=== PATIENT | female | born 1955 | race African-American/Black ===

== ENCOUNTER 2017-11-04 09:20 | Day surgery (SDC) | payer MEDICAID ==
[~2017-11-04 09:20] MED LIST: Bupivacaine 0.25%/EPINEPHrine 1:200,000 10 ML SDV INJECT ONE; Bupivacaine 25%/EPINEPHrine/PF 30 ML ONE; Lactated Ringers 1,000 ML IV SCH; Midazolam 1 MG/ML 2 ML SDV ONE; Ondansetron 4 MG/2 ML SDV ONE; Propofol 200 MG/20 ML SDV ONE; ceFAZolin 1 GM Vial ONE; ceFAZolin 2 GM in Premix Bag 1 BAG IV ONE; fentaNYL 100 MCG/2 ML SDV ONE; traMADol 50 MG Tab PO PRN
--- NOTE | 2017-11-04 09:39 | PCM.PREANE ---
Preanesthetic Assessment - Anesthesia/Transfusion/Family Hx Anesthesia History: Prior Anesthesia Without Reaction Family History of Anesthesia Reaction: No Transfusion History: No Prior Transfusion(s) Intubation History: Unknown - Review of Systems General: No Symptoms Pulmonary: No Symptoms Cardiovascular: No Symptoms Gastrointestinal: No Symptoms Neurological: No Symptoms Other: Reports: None - Physical Assessment O2 Sat by Pulse Oximetry: 96 Respiratory Rate: 16 Vital Signs: Last Vital Signs Temp 36.5 C 11/04/17 09:32 Pulse 107 H 11/04/17 09:32 Resp 16 11/04/17 09:32 BP 193/73 H 11/04/17 09:32 Pulse Ox 96 11/04/17 09:32 Height: 1.63 m Weight: 102.965 kg ASA Class: 2 Mental Status: Alert & Oriented x3 Airway Class: Mallampati = 2 Dentition: Reports: Normal Dentition, Broken Tooth/Teeth (small chip front upper incisor) Thyro-Mental Finger Breadths: 3 Mouth Opening Finger Breadths: 3 ROM/Head Extension: Full Lungs: Clear to Auscultation, Normal Respiratory Effort Cardiovascular: Regular Rate, Regular Rhythm - Allergies Allergies/Adverse Reactions: Allergies Allergy/AdvReac Type Severity Reaction Status Date / Time No Known Allergies Allergy Verified 11/01/17 12:48 - Blood Blood Available: No - Anesthesia Plan Pre-Op Medication Ordered: None - Acknowledgements Anesthesia Type Planned: General Anesthesia Pt an Appropriate Candidate for the Planned Anesthesia: Yes Alternatives and Risks of Anesthesia Discussed w Pt/Guardian: Yes Pt/Guardian Understands and Agrees with Anesthesia Plan: Yes PreAnesthesia Questionnaire HEENT History: Reports: Epistaxis Cardiovascular History: Reports: Hypertension Gastrointestinal History: Reports: Other (See Below) Other Gastrointestinal History: occasional heartburn Genitourinary History: Reports: None Endocrine/Metabolic History: Reports: Obesity/BMI 30+ - Past Surgical History Head Surgeries/Procedures: Reports: None HEENT Surgical History: Reports: LASIK Female Surgical History: Reports: Tubal Ligation - SUBSTANCE USE Smoking Status *Q: Former Smoker Recreational Drug Use History: No - HOME MEDS Home Medications: Home Meds Diclofenac Sodium [Voltaren] 1 tab PO ASDIRECTED PRN 11/01/17 [History] Famotidine [Acid Dietary Server] 1 tab PO ASDIRECTED PRN 11/01/17 [History] Losartan/Hydrochlorothiazide [Losartan-HCTZ 100-25 MG] 1 tab PO DAILY 11/01/17 [ History] - CURRENT (IN HOUSE) MEDS Current Meds: Current Medications Lactated Ringer's (Ringers, Lactated) 1,000 mls @ 125 mls/hr IV ASDIRECTED KAILEE Last Admin: 11/04/17 09:36 Dose: 125 mls/hr Tramadol HCl (Ultram) 50 mg PO Q4H PRN PRN Reason: Pain Discontinued Medications Bupivacaine HCl/Epinephrine Bitart (Marcaine 0.25%/Epinephrine 1:200,000) 10 ml INJECT ONETIME ONE Stop: 11/04/17 08:01 Cefazolin Sodium (Ancef) Confirm Administered Dose 1 gm .ROUTE .STK-MED ONE Stop: 11/04/17 08:53 Fentanyl (Sublimaze) Confirm Administered Dose 100 mcg .ROUTE .STK-MED ONE Stop: 11/04/17 08:34 Cefazolin Sodium/Dextrose 2 gm (/ Premix) 50 mls @ 100 mls/hr IV ONETIME ONE Stop: 11/04/17 08:29 Bupivacaine HCl/Epinephrine Bitart (Sensorc Mpf 0.25%-Epi [id number]) Confirm Administered Dose 30 mls @ as directed .ROUTE .STK-MED ONE Stop: 11/04/17 07:32 Cefazolin Sodium/Dextrose (Ancef) Confirm Administered Dose 50 mls @ as directed .ROUTE .STK-MED ONE Stop: 11/04/17 08:53 Cefazolin Sodium/Dextrose (Ancef) Confirm Administered Dose 50 mls @ as directed .ROUTE .STK-MED ONE Stop: 11/04/17 08:53 Midazolam HCl (Versed 1 Mg/Ml) Confirm Administered Dose 2 mg .ROUTE .STK-MED ONE Stop: 11/04/17 08:34 Ondansetron HCl (Zofran) Confirm Administered Dose 4 mg .ROUTE .STK-MED ONE Stop: 11/04/17 08:35 Propofol (Diprivan 20 Ml) Confirm Administered Dose 200 mg .ROUTE .STK-MED ONE Stop: 11/04/17 08:34
[2017-11-04] MEDS ORDERED: Propofol 200 MG/20 ML SDV ONE ×2 (09:57→10:19)
[2017-11-04] MEDS ORDERED: fentaNYL 100 MCG/2 ML SDV ONE (10:00)
[2017-11-04] MEDS ORDERED: Labetalol 100 MG/20 ML MDV ONE (10:11)
[2017-11-04] MEDS ORDERED: HYDROmorphone 2 MG/ML SDV ONE (10:17)
[2017-11-04] MEDS ORDERED: Ketorolac 30 MG/ML SDV ONE (10:43)
--- NOTE | 2017-11-04 11:52 | PCM.OPNOTE ---
- General Post-Op/Procedure Note Date of Surgery/Procedure: 11/04/17 Operative Procedure(s): excision of left dorsal wrist ganglion Pre Op Diagnosis: left dorsal wrist ganglion Post-Op Diagnosis: Same Anesthesia Technique: Local, MAC Primary Surgeon: Bessy Gonzales Complications: None Condition: Good Free Text/Narrative:: Intake & Output 11/03/17 11/04/17 11/04/17 23:59 07:59 15:59 Intake Total 1100 Balance 1100
--- NOTE | 2017-11-04 16:48 | OR ---
SURGEON: ABIODUN DOAN MD DATE OF PROCEDURE: 11/04/2017 PREOPERATIVE DIAGNOSIS: Left dorsal wrist ganglion. POSTOPERATIVE DIAGNOSIS: Left dorsal wrist ganglion. PROCEDURE: Excision of left dorsal wrist ganglion. GROUNDS/MAINTENANCE SPECIALIST: None. ANESTHESIA: Local MAC. INDICATIONS: Ms. Bianka Ferguson is a 61-year-old female with a left dorsal wrist ganglion. Risks and benefits of removal were discussed with her and she was in agreement to proceed. Risks were including, but not limited to, including infection, damage to underlying or overlying structures, possible need for future interventions, possible scarring. PROCEDURE IN DETAIL: After informed consent was obtained and placed on the chart, the patient was brought to the operating theater and laid in the supine position. After adequate local MAC anesthesia was obtained, the area was prepped and draped and time-out was completed to confirm side and site. Attention was then paid to exsanguination of the arm and insufflation of the tourniquet after time-out was completed to confirm side and site. Attention was then paid to dorsal dissection circumferentially around the ganglion with a longitudinal incision. Care was taken to protect any cutaneous nerves. Once adequately dissected to the stalk, the stalk was transected and the lesion sent for pathology. The area was copiously irrigated and the joint capsule was closed using a 4-0 Monocryl in a horizontal mattress fashion. Once adequately closed, the area was copiously irrigated. A small amount of bleeding was noted and meticulous hemostasis was obtained. The tourniquet was desufflated to ensure hemostasis and once done, it was irrigated and the skin was closed using a 4-0 Monocryl in a running fashion for the skin. The wound was dressed with Mastisol and Steri-Strips and then she was placed in a short- arm wrist cock-up splint. The patient tolerated this well and all counts and needles were correct at the end of the case. FOLLOWUP INSTRUCTIONS: The patient will see us in 10 to 14 days, sooner if any problems, questions, or concerns. DEVEN / GABRIEL /[id number]
== END 2017-11-04 12:41 | disposition home or self-care (01) ==
LOC: MW.SDS 09:20
PROVIDERS: ATTEND Plastic Surgery
DX: M67.432 Ganglion, left wrist (principal); I10 Essential (primary) hypertension; E66.9 Obesity, unspecified; Z68.38 Body mass index [BMI] 38.0-38.9, adult; Z87.891 Personal history of nicotine dependence; Z79.899 Other long term (current) drug therapy
CPT/HCPCS: 25111; J0690; J1170; J1885; J2250; J2405; J3010; J7120; 88304; J2704

== ENCOUNTER 2019-07-12 06:41 | Observation (INO) | payer MEDICAID ==
[2019-07-11 11:08] LABS: BLOOD UREA NITROGEN,BUN 14 mg/dL (7.0-18.0); CARBON DIOXIDE,CO2 28.9 mmol/L (21.0-32.0); CHLORIDE,CL 105 mmol/L (98-107); GLUCOSE RANDOM 114 mg/dL (74-106); POTASSIUM,K 3.9 mmol/L (3.5-5.1); SODIUM,NA 142 mmol/L (136-145)
[2019-07-12] MEDS: Lactated Ringers 1,000 ML IV SCH ×2 (07:17→21:57)
[2019-07-12] MEDS ORDERED: fentaNYL 100 MCG/2 ML SDV ONE ×2 (07:20→09:43)
[2019-07-12] MEDS ORDERED: Lidocaine 2% 5 ML SDV ONE (07:20)
[2019-07-12] MEDS ORDERED: Ondansetron 4 MG/2 ML SDV ONE (07:20)
[2019-07-12] MEDS ORDERED: Propofol 200 MG/20 ML SDV ONE (07:20)
[2019-07-12] MEDS ORDERED: Midazolam 1 MG/ML 2 ML SDV ONE (07:20)
[2019-07-12] MEDS ORDERED: Rocuronium 100 MG/10 ML Syringe ONE (07:34)
--- NOTE | 2019-07-12 07:50 | PCM.PREANE ---
Preanesthetic Assessment - Anesthesia/Transfusion/Family Hx Anesthesia History: Prior Anesthesia Without Reaction Family History of Anesthesia Reaction: No Transfusion History: No Prior Transfusion(s) Intubation History: Unknown - Review of Systems General: No Symptoms Pulmonary: No Symptoms Cardiovascular: No Symptoms Gastrointestinal: No Symptoms Neurological: No Symptoms Other: Reports: None - Physical Assessment NPO Status Date: 07/12/19 NPO Status Time: 06:00 Vital Signs: Last Vital Signs Temp 97.2 F 07/12/19 06:48 Pulse 91 07/12/19 06:48 Resp 18 07/12/19 06:48 BP 155/67 H 07/12/19 06:48 Pulse Ox 98 07/12/19 06:48 Height: 5 ft 3 in Weight: 99.79 kg ASA Class: 2 Mental Status: Alert & Oriented x3 Airway Class: Mallampati = 2 Dentition: Reports: Normal Dentition Lungs: Clear to Auscultation, Normal Respiratory Effort Cardiovascular: Regular Rate, Regular Rhythm - Lab Values: Laboratory Last Values WBC 5.54 K/uL (4.0-11.0) 07/11/19 10:15 RBC 4.82 M/uL (4.30-5.90) 07/11/19 10:15 Hgb 13.6 g/dL (12.0-16.0) 07/11/19 10:15 Hct 41.0 % (36.0-46.0) 07/11/19 10:15 MCV 85.1 fL (80.0-98.0) 07/11/19 10:15 MCH 28.2 pg (27.0-32.0) 07/11/19 10:15 MCHC 33.2 g/dL (31.0-37.0) 07/11/19 10:15 RDW Std Deviation 46.0 fl (28.0-62.0) 07/11/19 10:15 RDW Coeff of Remy 15 % (11.0-15.0) 07/11/19 10:15 Plt Count 265 K/uL (150-400) 07/11/19 10:15 MPV 10.20 fL (7.40-12.00) 07/11/19 10:15 Nucleated RBC % 0.0 /100WBC 07/11/19 10:15 Nucleated RBCs # 0 K/uL 07/11/19 10:15 Sodium 142 mmol/L (136-145) 07/11/19 10:15 Potassium 3.9 mmol/L (3.5-5.1) 07/11/19 10:15 Chloride 105 mmol/L (98-107) 07/11/19 10:15 Carbon Dioxide 28.9 mmol/L (21.0-32.0) 07/11/19 10:15 BUN 14 mg/dL (7.0-18.0) 07/11/19 10:15 Creatinine 0.9 mg/dL (0.6-1.0) 07/11/19 10:15 Est Cr Clr Drug Dosing 52.24 mL/min 07/11/19 10:15 Estimated GFR (MDRD) > 60.0 ml/min 07/11/19 10:15 Glucose 114 mg/dL (74-106) H 07/11/19 10:15 Calcium 9.6 mg/dL (8.5-10.1) 07/11/19 10:15 Blood Type A POSITIVE 07/11/19 10:15 Antibody Screen NEGATIVE 07/11/19 10:15 - Allergies Allergies/Adverse Reactions: Allergies Allergy/AdvReac Type Severity Reaction Status Date / Time No Known Allergies Allergy Verified 07/06/19 15:00 - Blood Blood Available: No - Anesthesia Plan Pre-Op Medication Ordered: None - Acknowledgements Anesthesia Type Planned: General Anesthesia Pt an Appropriate Candidate for the Planned Anesthesia: Yes Alternatives and Risks of Anesthesia Discussed w Pt/Guardian: Yes Pt/Guardian Understands and Agrees with Anesthesia Plan: Yes Additional Comments: PMH: htn, dm2 PLAN: get PreAnesthesia Questionnaire HEENT History: Reports: Cataract Other HEENT History: wears glasses Cardiovascular History: Reports: Hypertension Gastrointestinal History: Reports: Other (See Below) Other Gastrointestinal History: occasional heartburn Genitourinary History: Reports: None Musculoskeletal History: Reports: Arthritis Endocrine/Metabolic History: Reports: Obesity/BMI 30+, Other (See Below) Other Endocrine/Metabolic History: "borderline" diabetic - Past Surgical History Head Surgeries/Procedures: Reports: None HEENT Surgical History: Reports: Cataract Surgery Female Surgical History: Reports: Tubal Ligation - SUBSTANCE USE Smoking Status *Q: Never Smoker Recreational Drug Use History: No - HOME MEDS Home Medications: Home Meds Losartan Potassium 100 mg PO QAM 07/06/19 [History] Semaglutide [Rybelsus] 3 mg PO DAILY 07/06/19 [History] hydroCHLOROthiazide [Hydrochlorothiazide] 25 mg PO QAM 07/06/19 [History] metFORMIN HCl [Metformin HCl] 500 mg PO BID 07/06/19 [History] - CURRENT (IN HOUSE) MEDS Current Meds: Current Medications Lactated Ringer's (Ringers, Lactated) 1,000 mls @ 100 mls/hr IV ASDIRECTED KAILEE Last Admin: 07/12/19 07:17 Dose: 100 mls/hr Discontinued Medications Fentanyl (Sublimaze) Confirm Administered Dose 100 mcg .ROUTE .STK-MED ONE Stop: 07/12/19 07:21 Lidocaine (Xylocaine-Mpf 2%) Confirm Administered Dose 5 ml .ROUTE .STK-MED ONE Stop: 07/12/19 07:21 Midazolam HCl (Versed 1 Mg/Ml) Confirm Administered Dose 2 mg .ROUTE .STK-MED ONE Stop: 07/12/19 07:21 Ondansetron HCl (Zofran) Confirm Administered Dose 4 mg .ROUTE .STK-MED ONE Stop: 07/12/19 07:21 Propofol (Diprivan 20 Ml) Confirm Administered Dose 200 mg .ROUTE .STK-MED ONE Stop: 07/12/19 07:21 Rocuronium [place] (Zemuron) Confirm Administered Dose 100 mg .ROUTE .STK-MED ONE Stop: 07/12/19 07:35
[2019-07-12] MEDS ORDERED: HYDROmorphone 2 MG/ML Syringe ONE (08:09)
[2019-07-12] MEDS ORDERED: Atropine 0.1 MG/ML 10 ML Syringe IVPUSH PRN ×2 (08:35)
[2019-07-12] MEDS ORDERED: Albuterol 0.083% 2.5 MG/3 ML Neb Soln NEB PRN (08:35)
[2019-07-12] MEDS ORDERED: Naloxone 0.4 MG/ML Syringe IVPUSH PRN (08:35)
[2019-07-12] MEDS ORDERED: EPINEPHrine 1:10,000 1 MG/10 ML Syringe IVPUSH PRN (08:35)
[2019-07-12] MEDS ORDERED: 50% Dextrose in Water 50 ML Syringe IVPUSH PRN (08:35)
[2019-07-12] MEDS ORDERED: Glycopyrrolate 0.2 MG/ML SDV ONE (09:30)
[2019-07-12] MEDS ORDERED: Neostigmine Methylsulfate 1 MG/ML 5 ML Syringe ONE (09:30)
[2019-07-12] MEDS ORDERED: Fluorescein 5 ML Vial ONE (09:46)
[2019-07-12] MEDS ORDERED: Ketorolac 30 MG/ML SDV IVPUSH ONE (10:13)
[2019-07-12] MEDS ORDERED: Morphine 4 MG/ML Syringe IVPUSH PRN (10:13)
[2019-07-12] MEDS ORDERED: Promethazine 25 MG/ML SDV IM PRN (10:13)
--- NOTE | 2019-07-12 10:18 | PCM.OPNOTE ---
- General Post-Op/Procedure Note Date of Surgery/Procedure: 07/12/19 Operative Procedure(s): Hystroscopy D&C TVH,BSO, and cystoscopy. Post-Op Diagnosis: Same Anesthesia Technique: General ET Tube Primary Surgeon: Ricki Valentino EBL in mLs: 150 Complications: None Condition: Good
[2019-07-12] MEDS: fentaNYL 100 MCG/2 ML SDV IVPUSH PRN ×2 (10:33→10:49)
[2019-07-12] MEDS ORDERED: ceFAZolin 1 GM Vial ONE (10:38)
--- NOTE | 2019-07-12 11:20 | PCM.POSTAN ---
POST ANESTHESIA ASSESSMENT - MENTAL STATUS Mental Status: Alert, Oriented - VITAL SIGNS Vital Signs: Last Vital Signs Temp 97.3 F 07/12/19 10:19 Pulse 73 07/12/19 11:12 Resp 15 07/12/19 11:12 BP 128/56 L 07/12/19 11:12 Pulse Ox 94 L 07/12/19 11:12 - RESPIRATORY Respiratory Status: Respiratory Rate WNL, Airway Patent, O2 Saturation Stable - CARDIOVASCULAR CV Status: Pulse Rate WNL, Blood Pressure Stable - GASTROINTESTINAL GI Status: No Symptoms - POST OP HYDRATION Hydration Status: Adequate & Stable
--- NOTE | 2019-07-12 15:12 | OR ---
SURGEON: Ricki Valentino MD DATE OF PROCEDURE: PREOPERATIVE DIAGNOSIS: Postmenopausal bleeding. POSTOPERATIVE DIAGNOSIS: Postmenopausal bleeding. OPERATIONS PERFORMED: Hysteroscopy, D and C, frozen section, and followed by total vaginal hysterectomy and bilateral salpingo-oophorectomy and cystoscopy. PRIMARY SURGEON: Ricki Valentino MD. TELEPHONE ORDER DISPATCHER: Dr. Sy, Family Planning resident. ANESTHESIA: General endotracheal intubation, Ms. Ivory Nguyen and Dr. Kumar. ESTIMATED BLOOD LOSS: 150 mL. COMPLICATIONS: None. FINDINGS: Endometrial polyp frozen section, endometrial biopsy was benign. INDICATIONS FOR SURGERY: [place] referred to the admit note. PROCEDURE IN DETAIL: The patient was brought to the OR, properly identified, and after adequate level of anesthesia, the patient was placed in lithotomy position, prepped and draped in sterile fashion as usual. Straight catheter was used to empty the bladder. The operation started by applying single-tooth tenaculum and dilating the cervix to accommodate a small cannula to obtain endometrial biopsy and biopsy was sent for frozen section histopathology, and then while we were waiting, we continued with dilatation to accommodate a small hysteroscope and hysteroscopy was performed. There was one small fibroid and there were two polyps in the endometrial cavity. They were smooth-walled. They looked benign. They were not suspicious for malignancy. The exploration of the entire endometrial cavity showed no suspicion of . While we were finishing with the hysteroscopy, the frozen section report came back and it was benign endometrium. So we proceeded with the vaginal hysterectomy and weighted speculum was placed in vagina. Straight catheter was used to empty the bladder and a single-tooth tenaculum applied to the cervix. Circular incision in the vaginal mucosa was done around the cervix and the posterior cul-de-sac entered posteriorly. The vagina and the posterior cul-de-sac were tagged with 2-0 Vicryl and held for further identification. The short weighted speculum replaced with an extending long weighted speculum and then the uterosacral ligament was identified, clamped with a curved Zeppelin, transected, and sutured with 2-0 Vicryl, held for further identification. The same thing was done with the cardinal ligament and then the cervicovesical space entered anteriorly pushing the bladder completely away from the operative field. The anterior cul-de-sac was entered anteriorly and the broad ligament was clamped from both sides with a curved Zeppelin, transected, suture ligated with 2-0 Vicryl pop-off. The round ligament was clamped on both sides, transected, and suture ligated with 2-0 Vicryl pop-off. The uterus delivered posteriorly and the superior pedicle clamped with 90-degree Zeppelin. The tubes and ovaries included with the specimen and then the superior pedicle tied first with Endoloop on both sides and a free tie. Once inspection of the entire operative field showed no oozing, no bleeding, we asked Anesthesia to give the patient fluorescein, and we proceeded to close the vaginal cuff with [id number] suture without any problem. Then after that, cystoscopy was performed. The bladder was intact. Both ureteric orifices seen with the dye coming from both of them and thus the patency of both ureters verified. Satisfied with this procedure, the procedure ended. The instrument and sponge count was correct. The patient tolerated the procedure well, went to recovery room in stable general condition. SHABBIR / GABRIEL /[id number]
[2019-07-12] MEDS: Acetaminophen/oxyCODONE 325-5 MG Tab PO PRN ×2 (15:13→20:39)
[2019-07-13] MEDS: Acetaminophen/oxyCODONE 325-5 MG Tab PO PRN ×4 (00:54→22:37)
[2019-07-13 05:29] LABS: CARBON DIOXIDE,CO2 27.7 mmol/L (21.0-32.0); POTASSIUM,K 3.8 mmol/L (3.5-5.1)
--- NOTE | 2019-07-13 07:15 | PCM48HPAN ---
Post Anesthesia Note - EVALUATION WITHIN 48HRS OF ANESTHETIC Vital Signs in Normal Range: Yes Patient Participated in Evaluation: Yes Respiratory Function Stable: Yes Airway Patent: Yes Cardiovascular Function Stable: Yes Hydration Status Stable: Yes Pain Control Satisfactory: Yes Nausea and Vomiting Control Satisfactory: Yes Mental Status Recovered: Yes Vital Signs: Last Vital Signs Temp 36.4 C 07/13/19 04:30 Pulse 96 07/13/19 04:30 Resp 20 07/13/19 04:30 BP 143/65 H 07/13/19 04:30 Pulse Ox 98 07/13/19 06:00
[2019-07-13] MEDS: Ondansetron 4 MG/2 ML SDV IVPUSH PRN ×2 (08:32→13:51)
--- NOTE | 2019-07-13 13:39 | PCM.SURGPN ---
- General Info Date of Service: 07/13/19 POD#: 1 Functional Status: Reports: Pain Controlled - Review of Systems General: Reports: No Symptoms HEENT: Reports: No Symptoms Pulmonary: Reports: No Symptoms Cardiovascular: Reports: No Symptoms Gastrointestinal: Reports: No Symptoms Genitourinary: Reports: No Symptoms Musculoskeletal: Reports: No Symptoms Skin: Reports: No Symptoms Neurological: Reports: No Symptoms Psychiatric: Reports: No Symptoms - Patient Data Vitals - Most Recent: Last Vital Signs Temp 37.6 C 07/13/19 11:51 Pulse 115 H 07/13/19 11:51 Resp 17 07/13/19 11:51 BP 118/57 L 07/13/19 11:51 Pulse Ox 94 L 07/13/19 12:09 Weight - Most Recent: 99.79 kg I&O - Last 24 Hours: Intake & Output 07/12/19 07/13/19 07/13/19 22:59 06:59 14:59 Output Total 150 Balance -150 Lab Results Last 24 Hrs: Laboratory Results - last 24 hr 07/13/19 07/13/19 Range/Units 04:58 04:58 WBC 8.82 (4.0-11.0) K/uL RBC 4.16 L (4.30-5.90) M/uL Hgb 11.7 L (12.0-16.0) g/dL Hct 36.1 (36.0-46.0) % MCV 86.8 (80.0-98.0) fL MCH 28.1 (27.0-32.0) pg MCHC 32.4 (31.0-37.0) g/dL RDW Std Deviation 48.1 (28.0-62.0) fl RDW Coeff of Remy 15 (11.0-15.0) % Plt Count 231 (150-400) K/uL MPV 10.30 (7.40-12.00) fL Neut % (Auto) 81.0 H (48.0-80.0) % Lymph % (Auto) 14.3 L (16.0-40.0) % [place] % (Auto) 4.3 (0.0-15.0) % Eos % (Auto) 0.3 (0.0-7.0) % Baso % (Auto) 0.1 (0.0-1.5) % Neut # (Auto) 7.1 H (1.4-5.7) K/uL Lymph # (Auto) 1.3 (0.6-2.4) K/uL [place] # (Auto) 0.4 (0.0-0.8) K/uL Eos # (Auto) 0.0 (0.0-0.7) K/uL Baso # (Auto) 0.0 (0.0-0.1) K/uL Nucleated RBC % 0.0 /100WBC Nucleated RBCs # 0 K/uL Sodium 140 (136-145) mmol/L Potassium 3.8 (3.5-5.1) mmol/L Chloride 105 (98-107) mmol/L Carbon Dioxide 27.7 (21.0-32.0) mmol/L BUN 16 (7.0-18.0) mg/dL Creatinine 1.6 H (0.6-1.0) mg/dL Est Cr Clr Drug Dosing 29.38 mL/min Estimated GFR (MDRD) 39.3 ml/min Glucose 152 H (74-106) mg/dL Calcium 8.6 (8.5-10.1) mg/dL Med Orders - Current: Current Medications Albuterol (Proventil Neb Soln) 2.5 mg NEB ONETIME PRN PRN Reason: Wheezing Atropine Sulfate (Atropine 0.1 Mg/Ml) 0.5 mg IVPUSH ASDIRECTED PRN PRN Reason: Hypo-perfusion Atropine Sulfate (Atropine 0.1 Mg/Ml) 1 mg IVPUSH ASDIRECTED PRN PRN Reason: Hypo-Perfusion Dextrose/Water (Dextrose 50% In Water) 50 ml IVPUSH ASDIRECTED PRN PRN Reason: Hypoglycemia Epinephrine HCl (Epinephrine 1:10,000) 1 mg IVPUSH ASDIRECTED PRN PRN Reason: ACLS Guidelines Fentanyl (Sublimaze) 50 - 100 mcg IVPUSH Q5M PRN PRN Reason: Pain Last Admin: 07/12/19 10:49 Dose: 50 mcg Lactated Ringer's (Ringers, Lactated) 1,000 mls @ 100 mls/hr IV ASDIRECTED KAILEE Last Admin: 07/12/19 21:57 Dose: 100 mls/hr Ketorolac Tromethamine (Toradol) 30 mg IVPUSH Q6H PRN PRN Reason: Pain (severe 7-10) Stop: 07/17/19 10:14 Morphine Sulfate (Morphine) 4 mg IVPUSH Q2H PRN PRN Reason: Pain (severe 7-10) Last Admin: 07/13/19 11:48 Dose: 4 mg Naloxone HCl (Narcan) 0.1 mg IVPUSH ASDIRECTED PRN PRN Reason: Respiratory Depression Ondansetron HCl (Zofran) 4 mg IVPUSH Q6H PRN PRN Reason: Nausea/Vomiting Last Admin: 07/13/19 08:32 Dose: 4 mg Oxycodone/Acetaminophen (Percocet 325-5 Mg) 1 tab PO Q4H PRN PRN Reason: Pain (moderate 4-6) Oxycodone/Acetaminophen (Percocet 325-5 Mg) 2 tab PO Q4H PRN PRN Reason: Pain (moderate 4-6) Last Admin: 07/13/19 08:32 Dose: 2 tab Promethazine HCl (Phenergan) 25 mg IM Q6H PRN PRN Reason: Nausea/Vomiting Discontinued Medications Cefazolin Sodium (Ancef) Confirm Administered Dose 2 gm .ROUTE .STK-MED ONE Stop: 07/12/19 10:39 Fentanyl (Sublimaze) Confirm Administered Dose 100 mcg .ROUTE .STK-MED ONE Stop: 07/12/19 07:21 Fentanyl (Sublimaze) Confirm Administered Dose 100 mcg .ROUTE .STK-MED ONE Stop: 07/12/19 09:44 Fluorescein Sodium (Ak-Fluor) Confirm Administered Dose 5 ml .ROUTE .STK-MED ONE Stop: 07/12/19 09:47 Glycopyrrolate (Robinul) Confirm Administered Dose 0.2 mg .ROUTE .STK-MED ONE Stop: 07/12/19 09:31 Hydromorphone HCl (Dilaudid) Confirm Administered Dose 2 mg .ROUTE .STK-MED ONE Stop: 07/12/19 08:10 Ketorolac Tromethamine (Toradol) 30 mg IVPUSH ONETIME ONE Stop: 07/12/19 10:14 Last Admin: 07/12/19 10:46 Dose: 30 mg Lidocaine (Xylocaine-Mpf 2%) Confirm Administered Dose 5 ml .ROUTE .STK-MED ONE Stop: 01/30/20 07:21 Midazolam HCl (Versed 1 Mg/Ml) Confirm Administered Dose 2 mg .ROUTE .STK-MED ONE Stop: 07/12/19 07:21 Neostigmine Methylsulfate (Neostigmine) Confirm Administered Dose 5 mg .ROUTE .STK-MED ONE Stop: 07/12/19 09:31 Ondansetron HCl (Zofran) Confirm Administered Dose 4 mg .ROUTE .STK-MED ONE Stop: 07/12/19 07:21 Propofol (Diprivan 20 Ml) Confirm Administered Dose 200 mg .ROUTE .STK-MED ONE Stop: 07/12/19 07:21 Rocuronium [place] (Zemuron) Confirm Administered Dose 100 mg .ROUTE .STK-MED ONE Stop: 07/12/19 07:35 - Exam Wound/Incisions: Healing Well General: Alert, Oriented HEENT: Pupils Equal Neck: Supple Lungs: Clear to Auscultation, Normal Respiratory Effort Cardiovascular: Regular Rate, Regular Rhythm GI/Abdominal Exam: Normal Bowel Sounds, Soft, Non-Tender, No Organomegaly, No Distention, No Abnormal Bruit, No Mass, Pelvis Stable Extremities: Normal Inspection, Normal Range of Motion, Non-Tender, No Pedal Edema, Normal Capillary Refill Skin: Warm, Dry, Intact Neurological: No New Focal Deficit Psy/Mental Status: Alert, Normal Affect, Normal Mood Sepsis Event Note - Evaluation Sepsis Screening Result: No Definite Risk - Focused Exam Vital Signs: Vital Signs Temp Pulse Resp BP BP Pulse Ox Pulse Ox 07/13/19 12:09 94 L 07/13/19 11:51 37.6 C 115 H 17 118/57 L 93 L 07/13/19 07:16 37.0 C 112 H 19 128/92 H 95 07/13/19 06:00 98 07/13/19 05:00 95 07/13/19 04:30 36.4 C 96 20 143/65 H 95 Date Exam was Performed: 07/13/19 Time Exam was Performed: 13:38 - Problem List Review Problem List Initiated/Reviewed/Updated: Yes - My Orders Last 24 Hours: Active Orders 24 hr Category Date Time Status Insert Urinary Catheter [OM.PC] Stat Care 07/12/19 21:26 Ordered Medication Orders Albuterol (Proventil Neb Soln) 2.5 mg NEB ONETIME PRN PRN Reason: Wheezing Atropine Sulfate (Atropine 0.1 Mg/Ml) 0.5 mg IVPUSH ASDIRECTED PRN PRN Reason: Hypo-perfusion Atropine Sulfate (Atropine 0.1 Mg/Ml) 1 mg IVPUSH ASDIRECTED PRN PRN Reason: Hypo-Perfusion Dextrose/Water (Dextrose 50% In Water) 50 ml IVPUSH ASDIRECTED PRN PRN Reason: Hypoglycemia Epinephrine HCl (Epinephrine 1:10,000) 1 mg IVPUSH ASDIRECTED PRN PRN Reason: ACLS Guidelines Fentanyl (Sublimaze) 50 - 100 mcg IVPUSH Q5M PRN PRN Reason: Pain Last Admin: 07/12/19 10:49 Dose: 50 mcg Admin: 07/12/19 10:33 Dose: 50 mcg Lactated Ringer's (Ringers, Lactated) 1,000 mls @ 100 mls/hr IV ASDIRECTED KAILEE Last Admin: 07/12/19 21:57 Dose: 100 mls/hr Infusion: 07/12/19 17:17 Dose: 100 mls/hr Admin: 07/12/19 07:17 Dose: 100 mls/hr Ketorolac Tromethamine (Toradol) 30 mg IVPUSH Q6H PRN PRN Reason: Pain (severe 7-10) Stop: 07/17/19 10:14 Morphine Sulfate (Morphine) 4 mg IVPUSH Q2H PRN PRN Reason: Pain (severe 7-10) Last Admin: 07/13/19 11:48 Dose: 4 mg Naloxone HCl (Narcan) 0.1 mg IVPUSH ASDIRECTED PRN PRN Reason: Respiratory Depression Ondansetron HCl (Zofran) 4 mg IVPUSH Q6H PRN PRN Reason: Nausea/Vomiting Last Admin: 07/13/19 08:32 Dose: 4 mg Oxycodone/Acetaminophen (Percocet 325-5 Mg) 1 tab PO Q4H PRN PRN Reason: Pain (moderate 4-6) Oxycodone/Acetaminophen (Percocet 325-5 Mg) 2 tab PO Q4H PRN PRN Reason: Pain (moderate 4-6) Last Admin: 07/13/19 08:32 Dose: 2 tab Admin: 07/13/19 00:54 Dose: 2 tab Admin: 07/12/19 20:39 Dose: 2 tab Admin: 07/12/19 15:13 Dose: 2 tab Promethazine HCl (Phenergan) 25 mg IM Q6H PRN PRN Reason: Nausea/Vomiting - Assessment Assessment (Free Text/Narrative):: Status post vaginal hysterectomy the patient have her problem voiding right now we can observe her little bit more and if she is still not able to void will erika the [place] catheter on her and keep her here for another night
[2019-07-13] MEDS: Ketorolac 30 MG/ML SDV IVPUSH PRN ×2 (13:47→22:36)
[2019-07-14] MEDS: Acetaminophen/oxyCODONE 325-5 MG Tab PO PRN ×3 (04:07→14:08)
--- NOTE | 2019-07-14 09:11 | PCM.SURGPN ---
- General Info Date of Service: 07/14/19 Date of Surgery/Procedure: 07/12/19 POD#: 2 Post-Op Diagnosis: uterine polyp, postmenopausal bleeding Functional Status: Reports: Pain Controlled, Tolerating Diet, Ambulating, Urinating - Review of Systems General: Reports: No Symptoms HEENT: Reports: No Symptoms Pulmonary: Reports: No Symptoms Cardiovascular: Reports: No Symptoms Gastrointestinal: Reports: No Symptoms Genitourinary: Reports: No Symptoms Musculoskeletal: Reports: No Symptoms Skin: Reports: No Symptoms Neurological: Reports: No Symptoms Psychiatric: Reports: No Symptoms - Patient Data Vitals - Most Recent: Last Vital Signs Temp 36.3 C 07/14/19 04:48 Pulse 96 07/14/19 04:48 Resp 16 07/14/19 04:48 BP 124/61 07/14/19 04:48 Pulse Ox 94 L 07/14/19 04:48 Weight - Most Recent: 99.79 kg I&O - Last 24 Hours: Intake & Output 07/13/19 07/14/19 07/14/19 22:59 06:59 14:59 Intake Total 400 Output Total 375 1100 Balance 25 -1100 Lab Results Last 24 Hrs: Laboratory Results - last 24 hr 07/13/19 Range/Units 14:47 POC Glucose 134 H (60-110) mg/dL Med Orders - Current: Current Medications Albuterol (Proventil Neb Soln) 2.5 mg NEB ONETIME PRN PRN Reason: Wheezing Atropine Sulfate (Atropine 0.1 Mg/Ml) 0.5 mg IVPUSH ASDIRECTED PRN PRN Reason: Hypo-perfusion Atropine Sulfate (Atropine 0.1 Mg/Ml) 1 mg IVPUSH ASDIRECTED PRN PRN Reason: Hypo-Perfusion Dextrose/Water (Dextrose 50% In Water) 50 ml IVPUSH ASDIRECTED PRN PRN Reason: Hypoglycemia Epinephrine HCl (Epinephrine 1:10,000) 1 mg IVPUSH ASDIRECTED PRN PRN Reason: ACLS Guidelines Fentanyl (Sublimaze) 50 - 100 mcg IVPUSH Q5M PRN PRN Reason: Pain Last Admin: 07/12/19 10:49 Dose: 50 mcg Lactated Ringer's (Ringers, Lactated) 1,000 mls @ 100 mls/hr IV ASDIRECTED KAILEE Last Admin: 07/12/19 21:57 Dose: 100 mls/hr Ketorolac Tromethamine (Toradol) 30 mg IVPUSH Q6H PRN PRN Reason: Pain (severe 7-10) Stop: 07/17/19 10:14 Last Admin: 07/13/19 22:36 Dose: 30 mg Morphine Sulfate (Morphine) 4 mg IVPUSH Q2H PRN PRN Reason: Pain (severe 7-10) Last Admin: 07/13/19 11:48 Dose: 4 mg Naloxone HCl (Narcan) 0.1 mg IVPUSH ASDIRECTED PRN PRN Reason: Respiratory Depression Ondansetron HCl (Zofran) 4 mg IVPUSH Q6H PRN PRN Reason: Nausea/Vomiting Last Admin: 07/13/19 13:51 Dose: 4 mg Oxycodone/Acetaminophen (Percocet 325-5 Mg) 1 tab PO Q4H PRN PRN Reason: Pain (moderate 4-6) Last Admin: 07/14/19 04:07 Dose: 1 tab Oxycodone/Acetaminophen (Percocet 325-5 Mg) 2 tab PO Q4H PRN PRN Reason: Pain (moderate 4-6) Last Admin: 07/14/19 08:43 Dose: 2 tab Promethazine HCl (Phenergan) 25 mg IM Q6H PRN PRN Reason: Nausea/Vomiting Discontinued Medications Cefazolin Sodium (Ancef) Confirm Administered Dose 2 gm .ROUTE .STK-MED ONE Stop: 07/12/19 10:39 Fentanyl (Sublimaze) Confirm Administered Dose 100 mcg .ROUTE .STK-MED ONE Stop: 07/12/19 07:21 Fentanyl (Sublimaze) Confirm Administered Dose 100 mcg .ROUTE .STK-MED ONE Stop: 07/12/19 09:44 Fluorescein Sodium (Ak-Fluor) Confirm Administered Dose 5 ml .ROUTE .STK-MED ONE Stop: 07/12/19 09:47 Glycopyrrolate (Robinul) Confirm Administered Dose 0.2 mg .ROUTE .STK-MED ONE Stop: 07/12/19 09:31 Hydromorphone HCl (Dilaudid) Confirm Administered Dose 2 mg .ROUTE .STK-MED ONE Stop: 07/12/19 08:10 Ketorolac Tromethamine (Toradol) 30 mg IVPUSH ONETIME ONE Stop: 07/12/19 10:14 Last Admin: 07/12/19 10:46 Dose: 30 mg Lidocaine (Xylocaine-Mpf 2%) Confirm Administered Dose 5 ml .ROUTE .STK-MED ONE Stop: 07/12/19 07:21 Midazolam HCl (Versed 1 Mg/Ml) Confirm Administered Dose 2 mg .ROUTE .STK-MED ONE Stop: 07/12/19 07:21 Neostigmine Methylsulfate (Neostigmine) Confirm Administered Dose 5 mg .ROUTE .STK-MED ONE Stop: 07/12/19 09:31 Ondansetron HCl (Zofran) Confirm Administered Dose 4 mg .ROUTE .STK-MED ONE Stop: 07/12/19 07:21 Propofol (Diprivan 20 Ml) Confirm Administered Dose 200 mg .ROUTE .STK-MED ONE Stop: 07/12/19 07:21 Rocuronium [place] (Zemuron) Confirm Administered Dose 100 mg .ROUTE .STK-MED ONE Stop: 07/12/19 07:35 - Exam General: Alert, Oriented Neck: Supple Lungs: Normal Respiratory Effort GI/Abdominal Exam: Soft, Non-Tender Extremities: Non-Tender, No Pedal Edema Neurological: No New Focal Deficit Psy/Mental Status: Alert, Normal Affect, Normal Mood Sepsis Event Note - Evaluation Sepsis Screening Result: No Definite Risk - Focused Exam Vital Signs: Vital Signs Temp Pulse Resp BP Pulse Ox 07/14/19 04:48 36.3 C 96 16 124/61 94 L 07/14/19 00:24 36.9 C 103 H 16 115/57 L 97 Date Exam was Performed: 07/14/19 Time Exam was Performed: 09:09 - Problem List & Annotations (1) Postmenopausal bleeding SNOMED Code(s): 06478699 Code(s): N95.0 - POSTMENOPAUSAL BLEEDING Status: Acute Current Visit: Yes - Problem List Review Problem List Initiated/Reviewed/Updated: Yes - My Orders Last 24 Hours: Active Orders 24 hr Category Date Time Status Admission Status [Patient Status] [ADT] Routine ADT 07/13/19 14:32 Active Medication Orders Albuterol (Proventil Neb Soln) 2.5 mg NEB ONETIME PRN PRN Reason: Wheezing Atropine Sulfate (Atropine 0.1 Mg/Ml) 0.5 mg IVPUSH ASDIRECTED PRN PRN Reason: Hypo-perfusion Atropine Sulfate (Atropine 0.1 Mg/Ml) 1 mg IVPUSH ASDIRECTED PRN PRN Reason: Hypo-Perfusion Dextrose/Water (Dextrose 50% In Water) 50 ml IVPUSH ASDIRECTED PRN PRN Reason: Hypoglycemia Epinephrine HCl (Epinephrine 1:10,000) 1 mg IVPUSH ASDIRECTED PRN PRN Reason: ACLS Guidelines Fentanyl (Sublimaze) 50 - 100 mcg IVPUSH Q5M PRN PRN Reason: Pain Last Admin: 07/12/19 10:49 Dose: 50 mcg Admin: 07/12/19 10:33 Dose: 50 mcg Lactated Ringer's (Ringers, Lactated) 1,000 mls @ 100 mls/hr IV ASDIRECTED KAILEE Last Admin: 07/12/19 21:57 Dose: 100 mls/hr Infusion: 07/12/19 17:17 Dose: 100 mls/hr Admin: 07/12/19 07:17 Dose: 100 mls/hr Ketorolac Tromethamine (Toradol) 30 mg IVPUSH Q6H PRN PRN Reason: Pain (severe 7-10) Stop: 07/17/19 10:14 Last Admin: 07/13/19 22:36 Dose: 30 mg Admin: 07/13/19 13:47 Dose: 30 mg Morphine Sulfate (Morphine) 4 mg IVPUSH Q2H PRN PRN Reason: Pain (severe 7-10) Last Admin: 07/13/19 11:48 Dose: 4 mg Naloxone HCl (Narcan) 0.1 mg IVPUSH ASDIRECTED PRN PRN Reason: Respiratory Depression Ondansetron HCl (Zofran) 4 mg IVPUSH Q6H PRN PRN Reason: Nausea/Vomiting Last Admin: 07/13/19 13:51 Dose: 4 mg Admin: 07/13/19 08:32 Dose: 4 mg Oxycodone/Acetaminophen (Percocet 325-5 Mg) 1 tab PO Q4H PRN PRN Reason: Pain (moderate 4-6) Last Admin: 07/14/19 04:07 Dose: 1 tab Admin: 07/13/19 22:37 Dose: 1 tab Oxycodone/Acetaminophen (Percocet 325-5 Mg) 2 tab PO Q4H PRN PRN Reason: Pain (moderate 4-6) Last Admin: 07/14/19 08:43 Dose: 2 tab Admin: 07/13/19 17:27 Dose: 2 tab Admin: 07/13/19 08:32 Dose: 2 tab Admin: 07/13/19 00:54 Dose: 2 tab Admin: 07/12/19 20:39 Dose: 2 tab Admin: 07/12/19 15:13 Dose: 2 tab Promethazine HCl (Phenergan) 25 mg IM Q6H PRN PRN Reason: Nausea/Vomiting - Assessment Assessment (Free Text/Narrative):: POD#2 after TVH, stable, minimal lochia, tolerating regular diet. She has required 1 liter of O2, will discontinue this am if oxygen saturations are normal, will dismiss to home. - Plan Plan (Free Text/Narrative):: Discharge instructions reviewed.
== END 2019-07-14 15:10 | disposition home or self-care (01) ==
LOC: MW.SDS 06:41 → MW.OB 10:20 → MW.SDS 07-13 14:31 → MW.OB 07-13 14:32
PROVIDERS: ADMIT Obstetrics & Gynecology; ATTEND Obstetrics & Gynecology
DX: D25.0 Submucous leiomyoma of uterus (principal); N84.0 Polyp of corpus uteri; D18.09 Hemangioma of other sites; I10 Essential (primary) hypertension; E11.9 Type 2 diabetes mellitus without complications; M17.0 Bilateral primary osteoarthritis of knee; E66.9 Obesity, unspecified; Z68.38 Body mass index [BMI] 38.0-38.9, adult; Z87.891 Personal history of nicotine dependence; Z79.84 Long term (current) use of oral hypoglycemic drugs; Z79.899 Other long term (current) drug therapy
CPT/HCPCS: 36415; 51701; 51702; 58262; 58558; 80048; 82962; 85025; 85027; 86850; 86900; 86901; 88305; 88307; 88331; 88332; A9270; G0378; J0690; J1170; J1885; J2001; J2250; J2270; J2405; J2704; J3010; J3490; J7120; 00952

== ENCOUNTER 2019-07-30 11:10 | Observation (INO) | payer MEDICAID ==
[2019-07-30] MEDS ORDERED: Sodium Chloride 0.9% 10 ML Syringe FLUSH PRN (11:38)
[2019-07-30] MEDS ORDERED: Aspirin 81 MG Tab.Chew PO ONE (11:38)
[2019-07-30] MEDS ORDERED: Sodium Chloride 0.9% 2.5 ML Syringe FLUSH PRN (11:38)
--- NOTE | 2019-07-30 11:44 | EDM.PDOC ---
ED HPI GENERAL MEDICAL PROBLEM - General Chief Complaint: Chest Pain Stated Complaint: CHEST PAIN Time Seen by Provider: 07/30/19 11:20 Source of Information: Reports: Patient - History of Present Illness INITIAL COMMENTS - FREE TEXT/NARRATIVE: Patient complains of substernal chest pain. Began yesterday and continues today. It does not radiate to the jaw or upper extremities. It is a tightness , intensity 4 out of 10. She is not able to tell me what she was doing when it began yesterday, but says it does not seem to get worse with walking or going up and down stairs. She is not short of breath. She is not having coughing, sneeze, runny nose, shortness of breath,or other URI symptoms. chest Pain Score (Numeric/FACES): 7 - Related Data Allergies Allergy/AdvReac Type Severity Reaction Status Date / Time No Known Allergies Allergy Verified 07/30/19 11:19 Home Meds: Home Meds Losartan Potassium 100 mg PO QAM 07/06/19 [History] hydroCHLOROthiazide [Hydrochlorothiazide] 25 mg PO QAM 07/06/19 [History] metFORMIN HCl [Metformin HCl] 500 mg PO BID 07/06/19 [History] Past Medical History HEENT History: Reports: Cataract Other HEENT History: wears glasses Cardiovascular History: Reports: Hypertension Gastrointestinal History: Reports: Other (See Below) Other Gastrointestinal History: occasional heartburn Genitourinary History: Reports: None Musculoskeletal History: Reports: Arthritis Endocrine/Metabolic History: Reports: Diabetes, Type II, Obesity/BMI 30+, Other (See Below) Other Endocrine/Metabolic History: "borderline" diabetic - Past Surgical History Head Surgeries/Procedures: Reports: None HEENT Surgical History: Reports: Cataract Surgery Female Surgical History: Reports: Hysterectomy, Tubal Ligation Social & Family History - Family History Family Medical History: Noncontributory - Tobacco Use Smoking Status *Q: Never Smoker - Recreational Drug Use Recreational Drug Use: No ED ROS GENERAL - Review of Systems Review Of Systems: See Below Constitutional: Denies: Fever, Chills, Weakness Respiratory: Denies: Shortness of Breath, Wheezing, Pleuritic Chest Pain, Cough Cardiovascular: Reports: Chest Pain GI/Abdominal: Denies: Abdominal Pain, Nausea, Vomiting Skin: Denies: Bruising Neurological: Reports: Dizziness ED EXAM, GENERAL - Physical Exam Exam: See Below Free Text/Narrative:: Adult exam general: alert, well appearing, no acute distress HEENT: Atraumatic, normocephalic, pupils reactive, negative for conjunctival pallor or scleral icterus, mucous membranes moist, throat clear, handling oral secretions well. Neck: supple, nontender, trachea midline. Lungs: Clear to auscultation, breath sounds equal bilaterally, chest nontender. Heart: S1S2, regular, negative for clicks, rubs, or JVD. Abdomen: Soft, nondistended, nontender. Negative for masses or hepatosplenomegaly. Skin: warm, dry, good turgor. Musculoskeletal: soft compartments. Extremities: Atraumatic, negative for cords or calf pain. Neurovascular unremarkable. Neuro: Awake, alert, oriented. Cranial nerves II through XII unremarkable. Cerebellum unremarkable. Motor and sensory unremarkable throughout. Exam nonfocal. Course - Vital Signs Text/Narrative:: Cbc: nl Cmp: hyperglycemia (glu 161) Coags: INR nl Trop: neg Cxr:no acute dz Ek bpm normal sinus rhythm normal axis normal OK, QRS, QTc intervals; no acute ST changes 1:18pm HEART score is 4. Pt denies CP at this time; has rec'd only ASA while here. Pt was advised to be admitted for serial cardiac enzymes; I explained this to patient as meaning we would admit her, and then do some more blood test to check out her heart and see if it is healthy. Patient declined, stating that she had just been discharged from here a few weeks ago and really wants to go home. Explained to her that I think that admitting her is a safest thing to do, but if she is set against being admitted now, the next option would be to arrange for outpatient cardiology follow-up and stress test. She said she would prefer that option. She is nondiaphoretic, not nauseated, and looks comfortable at this time. Nsg advises that we cannot get her in for a stress test until the end of August 2019. 1:23 PM patient is now agreeing to stay for serial cardiac enzymes. Last Recorded V/S: Last Vital Signs Temp 96.6 F L 07/30/19 12:30 Pulse 74 07/30/19 12:41 Resp 20 07/30/19 12:41 BP 108/48 L 07/30/19 12:41 Pulse Ox 97 07/30/19 12:41 - Orders/Labs/Meds Orders: Active Orders 24 hr Category Date Time Status Admission Diagnosis [ADT] Stat ADT 07/30/19 13:26 Ordered Cardiac Monitoring [RC] . DIRECTED Care 07/30/19 11:38 Active EKG 12 Lead [EKG Documentation Completion] [RC] ROUTINE Care 07/30/19 11:44 Active Oxygen Therapy [RC] ASDIRECTED Care 07/30/19 11:38 Active Pulse Oximetry [RC] ASDIRECTED Care 07/30/19 11:38 Active Sodium Chloride 0.9% [Saline Flush] Med 07/30/19 11:38 Active 10 ml FLUSH ASDIRECTED PRN Sodium Chloride 0.9% [Saline Flush] Med 07/30/19 11:38 Active 2.5 ml FLUSH ASDIRECTED PRN Saline Lock Insert [OM.PC] Stat Oth 07/30/19 11:38 Ordered Medication Orders Sodium Chloride (Saline Flush) 10 ml FLUSH ASDIRECTED PRN PRN Reason: Keep Vein Open Sodium Chloride (Saline Flush) 2.5 ml FLUSH ASDIRECTED PRN PRN Reason: Keep Vein Open Labs: Laboratory Tests 07/30/19 07/30/19 07/30/19 Range/Units 11:47 11:47 11:47 WBC 5.55 (4.0-11.0) K/uL RBC 4.79 (4.30-5.90) M/uL Hgb 13.1 (12.0-16.0) g/dL Hct 40.7 (36.0-46.0) % MCV 85.0 (80.0-98.0) fL MCH 27.3 (27.0-32.0) pg MCHC 32.2 (31.0-37.0) g/dL RDW Std Deviation 48.1 (28.0-62.0) fl RDW Coeff of Remy 16 H (11.0-15.0) % Plt Count 398 (150-400) K/uL MPV 10.30 (7.40-12.00) fL Neut % (Auto) 36.4 L (48.0-80.0) % Lymph % (Auto) 53.2 H (16.0-40.0) % Douglas % (Auto) 9.2 (0.0-15.0) % Eos % (Auto) 0.7 (0.0-7.0) % Baso % (Auto) 0.5 (0.0-1.5) % Neut # (Auto) 2.0 (1.4-5.7) K/uL Lymph # (Auto) 3.0 H (0.6-2.4) K/uL Douglas # (Auto) 0.5 (0.0-0.8) K/uL Eos # (Auto) 0.0 (0.0-0.7) K/uL Baso # (Auto) 0.0 (0.0-0.1) K/uL Nucleated RBC % 0.0 /100WBC Nucleated RBCs # 0 K/uL INR 1.10 Sodium 143 (136-145) mmol/L Potassium 3.9 (3.5-5.1) mmol/L Chloride 104 (98-107) mmol/L Carbon Dioxide 28.1 (21.0-32.0) mmol/L BUN 12 (7.0-18.0) mg/dL Creatinine 0.9 (0.6-1.0) mg/dL Est Cr Clr Drug Dosing 52.24 mL/min Estimated GFR (MDRD) > 60.0 ml/min Glucose 161 H (74-106) mg/dL Calcium 10.0 (8.5-10.1) mg/dL Total Bilirubin 0.5 (0.2-1.0) mg/dL AST 18 (15-37) IU/L ALT 36 (14-63) IU/L Alkaline Phosphatase 69 (46-116) U/L Troponin I < 0.050 (0.000-0.056) ng/mL Total Protein 7.9 (6.4-8.2) g/dL Albumin 3.4 (3.4-5.0) g/dL Globulin 4.5 H (2.6-4.0) g/dL Albumin/Globulin Ratio 0.8 L (0.9-1.6) Meds: Medications Generic Name Dose Route Start Last Admin Trade Name Freq PRN Reason Stop Dose Admin Sodium Chloride 10 ml 07/30/19 11:38 Saline Flush FLUSH ASDIRECTED PRN Keep Vein Open Sodium Chloride 2.5 ml 07/30/19 11:38 Saline Flush FLUSH ASDIRECTED PRN Keep Vein Open Discontinued Medications Generic Name Dose Route Start Last Admin Trade Name Canq PRN Reason Stop Dose Admin Aspirin 324 mg 07/30/19 11:38 07/30/19 11:55 Aspirin PO 07/30/19 11:39 324 mg ONETIME ONE Administration Departure - Departure Time of Disposition: 13:26 Disposition: Refer to Observation Condition: Good Clinical Impression: Chest pain Qualifiers: Chest pain type: unspecified Qualified Code(s): R07.9 - Chest pain, unspecified Referrals: Hugh Pacheco MD [Primary Care Provider] - Forms: ED Department Discharge Sepsis Event Note - Evaluation Sepsis Screening Result: No Definite Risk - Focused Exam Vital Signs: Vital Signs Temp Pulse Resp BP Pulse Ox 07/30/19 12:41 74 20 108/48 L 97 07/30/19 12:30 96.6 F L 74 121/44 L 97 07/30/19 11:17 96.9 F 104 H 18 170/70 H 99 Date Exam was Performed: 07/30/19 Time Exam was Performed: 13:27 - My Orders Last 24 Hours: My Active Orders 07/30/19 11:38 Cardiac Monitoring [RC] . DIRECTED Oxygen Therapy [RC] ASDIRECTED Pulse Oximetry [RC] ASDIRECTED Sodium Chloride 0.9% [Saline Flush] 10 ml FLUSH ASDIRECTED PRN Sodium Chloride 0.9% [Saline Flush] 2.5 ml FLUSH ASDIRECTED PRN Saline Lock Insert [OM.PC] Stat 07/30/19 11:44 EKG 12 Lead [EKG Documentation Completion] [RC] ROUTINE 07/30/19 13:26 Admission Diagnosis [ADT] Stat - Assessment/Plan Last 24 Hours: My Active Orders 07/30/19 11:38 Cardiac Monitoring [RC] . DIRECTED Oxygen Therapy [RC] ASDIRECTED Pulse Oximetry [RC] ASDIRECTED Sodium Chloride 0.9% [Saline Flush] 10 ml FLUSH ASDIRECTED PRN Sodium Chloride 0.9% [Saline Flush] 2.5 ml FLUSH ASDIRECTED PRN Saline Lock Insert [OM.PC] Stat 07/30/19 11:44 EKG 12 Lead [EKG Documentation Completion] [RC] ROUTINE 07/30/19 13:26 Admission Diagnosis [ADT] Stat
--- NOTE | 2019-07-30 12:32 | CR ---
Chest: 2 views of the chest were obtained. Comparison: No prior chest imaging. Slight scarring or discoid atelectasis is seen within both midlung regions. Lungs otherwise are clear with no acute parenchymal change. Heart size and mediastinum are normal. Degenerative change is noted within the spine. Impression: 1. Nothing acute is appreciated on 2 view chest x-ray. 2. Other findings as noted above. Diagnostic code #2 This report was dictated in [place] Standard Time
[2019-07-30 12:42] LABS: BLOOD UREA NITROGEN,BUN 12 mg/dL (7.0-18.0); CARBON DIOXIDE,CO2 28.1 mmol/L (21.0-32.0); CHLORIDE,CL 104 mmol/L (98-107); GLUCOSE RANDOM 161 mg/dL (74-106); POTASSIUM,K 3.9 mmol/L (3.5-5.1); SODIUM,NA 143 mmol/L (136-145)
[2019-07-30] MEDS ORDERED: Morphine 10 MG/ML Syringe IVPUSH PRN (13:42)
[2019-07-30] MEDS ORDERED: Polyethylene Glycol 3350 Powder 17 GM Packet PO PRN (13:42)
[2019-07-30] MEDS ORDERED: Ondansetron 4 MG/2 ML SDV IVPUSH PRN (13:42)
[2019-07-30] MEDS ORDERED: Ondansetron 4 MG Tab.DIS PO PRN (13:42)
[2019-07-30] MEDS ORDERED: Acetaminophen 325 MG Tab PO PRN (13:42)
[2019-07-30] MEDS ORDERED: Ibuprofen 800 MG Tab PO PRN (13:42)
[2019-07-30] MEDS ORDERED: Enoxaparin 40 MG/0.4 ML Syringe SUBCUT SCH (13:45)
--- NOTE | 2019-07-30 14:03 | PCM.HP.2 ---
H&P History of Present Illness - General Date of Service: 07/30/19 Admit Problem/Dx: Admission Diagnosis/Problem Admission Diagnosis/Problem Chest pain with moderate risk of acute coronary syndrome - History of Present Illness Initial Comments - Free Text/Narative: 63 y/o female with history of DM2 who presented to the ER complaining of substernal, epigastric pain. No radiation to neck or arms. No palpitations. States she woke up around 10 am when she was heading to the kitchen to make breakfast. She suddenly started having chest pain. No nausea, vomiting. No presyncope. Initially rated the pain 8/10, sharp, non radiating. Now, pain has improved. Tender in epigastric region. No trauma to chest. She does endorse a history of acid reflux, but not taking anything on a regular basis. In the ER, she received aspirin. Initial trop negative. EKG unremarkable. chest Pain Score (Numeric/FACES): 7 - Related Data Allergies/Adverse Reactions: Allergies Allergy/AdvReac Type Severity Reaction Status Date / Time No Known Allergies Allergy Verified 07/30/19 11:19 Home Medications: Home Meds Losartan Potassium 100 mg PO QAM 07/06/19 [History] hydroCHLOROthiazide [Hydrochlorothiazide] 25 mg PO QAM 07/06/19 [History] metFORMIN HCl [Metformin HCl] 500 mg PO BID 07/06/19 [History] Past Medical History HEENT History: Reports: Cataract Other HEENT History: wears glasses Cardiovascular History: Reports: Hypertension Gastrointestinal History: Reports: Other (See Below) Other Gastrointestinal History: occasional heartburn Genitourinary History: Reports: None Musculoskeletal History: Reports: Arthritis Endocrine/Metabolic History: Reports: Diabetes, Type II, Obesity/BMI 30+, Other (See Below) Other Endocrine/Metabolic History: "borderline" diabetic - Past Surgical History Head Surgeries/Procedures: Reports: None HEENT Surgical History: Reports: Cataract Surgery Female Surgical History: Reports: Hysterectomy, Tubal Ligation Social & Family History - Family History Family Medical History: Noncontributory - Tobacco Use Smoking Status *Q: Never Smoker - Recreational Drug Use Recreational Drug Use: No H&P Review of Systems - Review of Systems: Review Of Systems: Comprehensive ROS is negative, except as noted in HPI. Exam - Exam Exam: See Below - Vital Signs Vital Signs: Last Vital Signs Temp 35.9 C L 07/30/19 12:30 Pulse 74 07/30/19 12:41 Resp 20 07/30/19 12:41 BP 108/48 L 07/30/19 12:41 Pulse Ox 97 07/30/19 12:41 Weight: 93.894 kg - Exam General: Alert, Oriented, Cooperative HEENT: Pupils Equal, Pupils Reactive Lungs: Clear to Auscultation, Normal Respiratory Effort, Wheezing. No: Crackles Cardiovascular: Regular Rate, Regular Rhythm GI/Abdominal Exam: Normal Bowel Sounds, Soft, Non-Tender, No Distention, Other ( Tender in epigastric region.) Extremities: Normal Inspection, No Pedal Edema Skin: Warm, Dry Neuro Extensive - Mental Status: Alert, Oriented x3 - Patient Data Lab Results Last 24 hrs: Laboratory Results - last 24 hr 07/30/19 07/30/19 07/30/19 Range/Units 11:47 11:47 11:47 WBC 5.55 (4.0-11.0) K/uL RBC 4.79 (4.30-5.90) M/uL Hgb 13.1 (12.0-16.0) g/dL Hct 40.7 (36.0-46.0) % MCV 85.0 (80.0-98.0) fL MCH 27.3 (27.0-32.0) pg MCHC 32.2 (31.0-37.0) g/dL RDW Std Deviation 48.1 (28.0-62.0) fl RDW Coeff of Remy 16 H (11.0-15.0) % Plt Count 398 (150-400) K/uL MPV 10.30 (7.40-12.00) fL Neut % (Auto) 36.4 L (48.0-80.0) % Lymph % (Auto) 53.2 H (16.0-40.0) % [facility] % (Auto) 9.2 (0.0-15.0) % Eos % (Auto) 0.7 (0.0-7.0) % Baso % (Auto) 0.5 (0.0-1.5) % Neut # (Auto) 2.0 (1.4-5.7) K/uL Lymph # (Auto) 3.0 H (0.6-2.4) K/uL [facility] # (Auto) 0.5 (0.0-0.8) K/uL Eos # (Auto) 0.0 (0.0-0.7) K/uL Baso # (Auto) 0.0 (0.0-0.1) K/uL Nucleated RBC % 0.0 /100WBC Nucleated RBCs # 0 K/uL INR 1.10 Sodium 143 (136-145) mmol/L Potassium 3.9 (3.5-5.1) mmol/L Chloride 104 (98-107) mmol/L Carbon Dioxide 28.1 (21.0-32.0) mmol/L BUN 12 (7.0-18.0) mg/dL Creatinine 0.9 (0.6-1.0) mg/dL Est Cr Clr Drug Dosing 52.24 mL/min Estimated GFR (MDRD) > 60.0 ml/min Glucose 161 H (74-106) mg/dL Calcium 10.0 (8.5-10.1) mg/dL Total Bilirubin 0.5 (0.2-1.0) mg/dL AST 18 (15-37) IU/L ALT 36 (14-63) IU/L Alkaline Phosphatase 69 (46-116) U/L Troponin I < 0.050 (0.000-0.056) ng/mL Total Protein 7.9 (6.4-8.2) g/dL Albumin 3.4 (3.4-5.0) g/dL Globulin 4.5 H (2.6-4.0) g/dL Albumin/Globulin Ratio 0.8 L (0.9-1.6) Result Diagrams: 07/30/19 11:47 07/30/19 11:47 Sepsis Event Note - Evaluation Sepsis Screening Result: No Definite Risk - Focused Exam Vital Signs: Vital Signs Temp Pulse Resp BP Pulse Ox 07/30/19 12:41 74 20 108/48 L 97 07/30/19 12:30 35.9 C L 74 121/44 L 97 07/30/19 11:17 36.1 C 104 H 18 170/70 H 99 Date Exam was Performed: 07/30/19 Time Exam was Performed: 13:57 Problem List Initiated/Reviewed/Updated: Yes Orders Last 24hrs: Active Orders 24 hr Category Date Time Status Admission Status [Patient Status] [ADT] Stat ADT 07/30/19 13:32 Active Admission Status [Patient Status] [ADT] Stat ADT 07/30/19 13:32 Active Cardiac Monitoring [RC] . DIRECTED Care 07/30/19 11:38 Active Cardiac Monitoring [RC] . DIRECTED Care 07/30/19 13:32 Active EKG 12 Lead [EKG Documentation Completion] [RC] ROUTINE Care 07/30/19 11:44 Active Intake and Output [RC] Q12H Care 07/30/19 13:42 Active Oxygen Therapy [RC] PRN Care 07/30/19 13:42 Active Pulse Oximetry [RC] ASDIRECTED Care 07/30/19 11:38 Active Up ad Anni [RC] ASDIRECTED Care 07/30/19 13:42 Active VTE/DVT Education [RC] PER UNIT ROUTINE Care 07/30/19 13:42 Active Vital Signs [RC] Q4H Care 07/30/19 13:42 Active [place] [employer] Diet [DIET] Diet 07/30/19 Dinner Active Echo Comp wo Cont [US] Stat Exams 07/30/19 13:47 Ordered BASIC METABOLIC PANEL,BMP [CHEM] AM Lab 07/31/19 05:11 Ordered CBC WITH AUTO DIFF [HEME] AM Lab 07/31/19 05:11 Ordered GLYCOSYLATED HEMOGLOBIN,HGBA1C [CHEM] Stat Lab 07/30/19 11:47 Received H PYLORI STOOL ANTIGEN [MREF] Routine Lab 07/30/19 13:54 Ordered LIPID PANEL [CHEM] AM Lab 07/31/19 05:11 Ordered TROPONIN I [CHEM] Q6H Lab 07/30/19 18:00 Ordered TROPONIN I [CHEM] Q6H Lab 07/31/19 00:00 Ordered TSH [CHEM] Routine Lab 07/30/19 11:47 Received Acetaminophen [Tylenol] Med 07/30/19 13:42 Active 650 mg PO Q4H PRN Aspirin Med 07/31/19 09:00 Active 81 mg PO DAILY Docusate Sodium [Colace] Med 07/30/19 13:42 Active 100 mg PO BID PRN Enoxaparin [Lovenox] Med 07/30/19 13:45 Active 40 mg SUBCUT Q24H Ibuprofen [Motrin] Med 07/30/19 13:42 Active 800 mg PO Q6H PRN Losartan Potassium Med 07/31/19 09:00 Active 100 mg PO QAM Morphine Med 07/30/19 13:42 Active 2 mg IVPUSH Q2H PRN Ondansetron [Zofran ODT] Med 07/30/19 13:42 Active 4 mg PO Q4H PRN Ondansetron [Zofran] Med 07/30/19 13:42 Active 4 mg IVPUSH Q4H PRN Pantoprazole [ProTONIX IV] 40 mg Med 07/30/19 14:00 Active Sodium Chloride 0.9% [Normal Saline] 10 ml IV DAILY Sodium Chloride 0.9% [Saline Flush] Med 07/30/19 11:38 Active 10 ml FLUSH ASDIRECTED PRN Sodium Chloride 0.9% [Saline Flush] Med 07/30/19 11:38 Active 2.5 ml FLUSH ASDIRECTED PRN Sucralfate [Carafate] Med 07/30/19 17:00 Active 1 gm PO TIDAC atorvaSTATin [Lipitor] Med 07/30/19 21:00 Active 40 mg PO BEDTIME hydroCHLOROthiazide Med 07/31/19 09:00 Active 25 mg PO QAM polyethylene glycoL 3350 [MiraLAX] Med 07/30/19 13:42 Active 17 gm PO DAILY PRN Saline Lock Insert [OM.PC] Stat Oth 07/30/19 11:38 Ordered Resuscitation Status Routine Resus Stat 07/30/19 13:42 Ordered Medication Orders Acetaminophen (Tylenol) 650 mg PO Q4H PRN PRN Reason: Pain (Mild 1-3)/fever Aspirin (Aspirin) 81 mg PO DAILY [facility] Atorvastatin Calcium (Lipitor) 40 mg PO BEDTIME [facility] Docusate Sodium (Colace) 100 mg PO BID PRN PRN Reason: Constipation Enoxaparin Sodium (Lovenox) 40 mg SUBCUT Q24H [facility] Hydrochlorothiazide (Hydrochlorothiazide) 25 mg PO QAM [facility] Pantoprazole Sodium 40 mg/ (Sodium Chloride) 10 mls @ 300 mls/hr IV DAILY [facility] Ibuprofen (Motrin) 800 mg PO Q6H PRN PRN Reason: Pain (mild 1-3) Morphine Sulfate (Morphine) 2 mg IVPUSH Q2H PRN PRN Reason: Pain (severe 7-10) Stop: 07/31/19 13:43 Non-Formulary Medication (Losartan Potassium) 100 mg PO QAM [facility] Ondansetron HCl (Zofran Odt) 4 mg PO Q4H PRN PRN Reason: nausea, able to take PO Ondansetron HCl (Zofran) 4 mg IVPUSH Q4H PRN PRN Reason: Nausea Polyethylene Glycol (Miralax) 17 gm PO DAILY PRN PRN Reason: Constipation Sodium Chloride (Saline Flush) 10 ml FLUSH ASDIRECTED PRN PRN Reason: Keep Vein Open Sodium Chloride (Saline Flush) 2.5 ml FLUSH ASDIRECTED PRN PRN Reason: Keep Vein Open Sucralfate (Carafate) 1 gm PO TIDAC [facility]LEE Assessment/Plan Comment:: A: 1. Atypical chest pain 2. PMH diabetes type 2, hypertension P: 1. Will admit for ACS rule out. Suspect PUD as the cause of her symptoms. However, will trend troponins and telemetry. Ordered Echo. Ordered pantoprazole and carafate and see if that helps. Will test for H. pylori. Will resume her home meds for hypertension and will start ISS for hyperglycemia. Dispo: 1-2 days.
[2019-07-30] MEDS ORDERED: Nitroglycerin 0.4 MG Tab.SL SL PRN (14:04)
[2019-07-30 14:13] LABS: HEMOGLOBIN A1C 6.5 % (4.5-6.2)
[2019-07-30] MEDS: Pantoprazole 40 MG in Sodium Chloride 0.9% 10 ML IV SCH (14:50)
[2019-07-30] MEDS: Insulin Aspart 100 Units/ML 3 ML Pen SUBCUT SCH (16:27)
--- NOTE | 2019-07-30 16:29 | US ---
Limited abdominal ultrasound: Multiple real-time images of the upper right abdomen were obtained. Comparison: No prior abdominal imaging. Findings: Liver shows no focal parenchymal abnormality. Visualized portions of the pancreas appears within normal limits. Right kidney shows no hydronephrosis or mass and has a length of 10.5 cm. Gallbladder shows no shadowing gallstones. No gallbladder wall thickening or biliary duct dilatation is seen. Impression: 1. No abnormality is identified on right upper quadrant abdominal ultrasound. Diagnostic code #1 Study was dictated in [place] Standard Time
[2019-07-30] MEDS: Sucralfate 1 GM Tab PO SCH (16:58)
[2019-07-30] MEDS ORDERED: Morphine 2 MG/ML Syringe IVPUSH PRN (17:48)
[2019-07-30] MEDS: Docusate Sodium 100 MG Cap PO PRN (18:35)
[2019-07-30] MEDS ORDERED: atorvaSTATin 40 MG Tab PO SCH (21:00)
[2019-07-31 06:06] LABS: BLOOD UREA NITROGEN,BUN 13 mg/dL (7.0-18.0); CARBON DIOXIDE,CO2 26.9 mmol/L (21.0-32.0); CHLORIDE,CL 107 mmol/L (98-107); GLUCOSE RANDOM 127 mg/dL (74-106); POTASSIUM,K 3.9 mmol/L (3.5-5.1); SODIUM,NA 142 mmol/L (136-145)
[2019-07-31] MEDS: Insulin Aspart 100 Units/ML 3 ML Pen SUBCUT SCH (07:32)
[2019-07-31] MEDS: Sucralfate 1 GM Tab PO SCH (07:34)
--- NOTE | 2019-07-31 07:53 | PCM.DCSUM1 ---
<Gurjit Her - Last Filed: 07/31/19 11:12> Discharge Summary - Hospital Course Free Text/Narrative:: 63 y/o female with history of type 2 diabetes, hypertension who presented to the ER complaining of chest pain. She was admitted for ACS rule out. Serial troponins were negative. Echo results pending. She was found to have mild elevated lipase at 400. She was tolerating PO intake. She was started on pantoprazole and carafate. Stated that her symptoms had resolved. She was started on atorvastatin 80 mg PO daily and aspirin 80mg PO daily. She was advised to follow-up with her PCP for outpatient stress test. - Discharge Data Discharge Date: 07/31/19 Discharge Disposition: Home, Self-Care 01 Condition: Good - Referral to Home Health Primary Care Physician: Hugh Pacheco MD - Patient Instructions Diet: Diabetic Diet Activity: As Tolerated - Discharge Plan *PRESCRIPTION DRUG MONITORING PROGRAM REVIEWED*: Not Applicable *COPY OF PRESCRIPTION DRUG MONITORING REPORT IN PATIENT KAYY: Not Applicable Prescriptions/Med Rec: Aspirin 81 mg PO DAILY 30 Days #30 tab.chew atorvaSTATin [Lipitor] 40 mg PO BEDTIME 30 Days #30 tablet Pantoprazole [ProTONIX] 40 mg PO DAILY 30 Days #30 tab.cr Sucralfate [Carafate] 1 gm PO TIDAC #30 cup Home Medications: Home Meds Losartan Potassium 100 mg PO QAM 07/06/19 [History] hydroCHLOROthiazide [Hydrochlorothiazide] 25 mg PO QAM 07/06/19 [History] metFORMIN HCl [Metformin HCl] 500 mg PO BID 07/06/19 [History] Aspirin 81 mg PO DAILY 30 Days #30 tab.chew 07/31/19 [Rx] Pantoprazole [ProTONIX] 40 mg PO DAILY 30 Days #30 tab.cr 07/31/19 [Rx] Sucralfate [Carafate] 1 gm PO TIDAC #30 cup 07/31/19 [Rx] atorvaSTATin [Lipitor] 40 mg PO BEDTIME 30 Days #30 tablet 07/31/19 [Rx] Patient Handouts: Acute Pancreatitis, [id number], Nonspecific Chest Pain, Sucralfate tablets, Atorvastatin tablets, Pantoprazole tablets, Aspirin, ASA oral tablets Referrals: Hugh Pacheco MD [Primary Care Provider] - 08/08/19 10:30 am - Discharge Summary/Plan Comment DC Time >30 min.: No - Patient Data Vitals - Most Recent: Last Vital Signs Temp 35.9 C L 07/31/19 07:49 Pulse 60 07/31/19 07:49 Resp 14 07/31/19 07:49 BP 156/70 H 07/31/19 07:49 Pulse Ox 98 07/31/19 07:49 Weight - Most Recent: 94.347 kg I&O - Last 24 hours: Intake & Output 07/30/19 07/31/19 07/31/19 22:59 06:59 14:59 Intake Total 700 Balance 700 Lab Results - Last 24 hrs: Laboratory Results - last 24 hr 07/30/19 07/30/19 07/30/19 Range/Units 11:47 11:47 11:47 WBC 5.55 (4.0-11.0) K/uL RBC 4.79 (4.30-5.90) M/uL Hgb 13.1 (12.0-16.0) g/dL Hct 40.7 (36.0-46.0) % MCV 85.0 (80.0-98.0) fL MCH 27.3 (27.0-32.0) pg MCHC 32.2 (31.0-37.0) g/dL RDW Std Deviation 48.1 (28.0-62.0) fl RDW Coeff of Remy 16 H (11.0-15.0) % Plt Count 398 (150-400) K/uL MPV 10.30 (7.40-12.00) fL Neut % (Auto) 36.4 L (48.0-80.0) % Lymph % (Auto) 53.2 H (16.0-40.0) % [place] % (Auto) 9.2 (0.0-15.0) % Eos % (Auto) 0.7 (0.0-7.0) % Baso % (Auto) 0.5 (0.0-1.5) % Neut # (Auto) 2.0 (1.4-5.7) K/uL Lymph # (Auto) 3.0 H (0.6-2.4) K/uL [place] # (Auto) 0.5 (0.0-0.8) K/uL Eos # (Auto) 0.0 (0.0-0.7) K/uL Baso # (Auto) 0.0 (0.0-0.1) K/uL Add Manual Diff Neutrophils % (Manual) (48.0-80.0) % Lymphocytes % (Manual) (16.0-40.0) % Monocytes % (Manual) (0.0-15.0) % Eosinophils % (Manual) (0.0-7.0) % Nucleated RBC % 0.0 /100WBC Absolute Seg Neuts (1.4-5.7) Lymphocytes # (Manual) (0.6-2.4) Monocytes # (Manual) (0.0-0.8) Eosinophils # (Manual) (0.0-0.7) Nucleated RBCs # 0 K/uL INR 1.10 Sodium 143 (136-145) mmol/L Potassium 3.9 (3.5-5.1) mmol/L Chloride 104 (98-107) mmol/L Carbon Dioxide 28.1 (21.0-32.0) mmol/L BUN 12 (7.0-18.0) mg/dL Creatinine 0.9 (0.6-1.0) mg/dL Est Cr Clr Drug Dosing 52.24 mL/min Estimated GFR (MDRD) > 60.0 ml/min Glucose 161 H (74-106) mg/dL POC Glucose (60-110) mg/dL Hemoglobin A1c (4.5-6.2) % Calcium 10.0 (8.5-10.1) mg/dL Total Bilirubin 0.5 (0.2-1.0) mg/dL AST 18 (15-37) IU/L ALT 36 (14-63) IU/L Alkaline Phosphatase 69 (46-116) U/L Troponin I < 0.050 (0.000-0.056) ng/mL Total Protein 7.9 (6.4-8.2) g/dL Albumin 3.4 (3.4-5.0) g/dL Globulin 4.5 H (2.6-4.0) g/dL Albumin/Globulin Ratio 0.8 L (0.9-1.6) Triglycerides (0-200) mg/dL Cholesterol (50-200) mg/dL LDL Cholesterol, Calc (60-180) mg/dL VLDL Cholesterol (5-55) mg/dL HDL Cholesterol (40-60) mg/dL Cholesterol/HDL Ratio (3.3-6.0) Lipase (73-393) U/L TSH 3rd Generation (0.36-3.74) uIU/mL 07/30/19 07/30/19 07/30/19 Range/Units 11:47 11:47 11:47 WBC (4.0-11.0) K/uL RBC (4.30-5.90) M/uL Hgb (12.0-16.0) g/dL Hct (36.0-46.0) % MCV (80.0-98.0) fL MCH (27.0-32.0) pg MCHC (31.0-37.0) g/dL RDW Std Deviation (28.0-62.0) fl RDW Coeff of Remy (11.0-15.0) % Plt Count (150-400) K/uL MPV (7.40-12.00) fL Neut % (Auto) (48.0-80.0) % Lymph % (Auto) (16.0-40.0) % [place] % (Auto) (0.0-15.0) % Eos % (Auto) (0.0-7.0) % Baso % (Auto) (0.0-1.5) % Neut # (Auto) (1.4-5.7) K/uL Lymph # (Auto) (0.6-2.4) K/uL [place] # (Auto) (0.0-0.8) K/uL Eos # (Auto) (0.0-0.7) K/uL Baso # (Auto) (0.0-0.1) K/uL Add Manual Diff Neutrophils % (Manual) (48.0-80.0) % Lymphocytes % (Manual) (16.0-40.0) % Monocytes % (Manual) (0.0-15.0) % Eosinophils % (Manual) (0.0-7.0) % Nucleated RBC % /100WBC Absolute Seg Neuts (1.4-5.7) Lymphocytes # (Manual) (0.6-2.4) Monocytes # (Manual) (0.0-0.8) Eosinophils # (Manual) (0.0-0.7) Nucleated RBCs # K/uL INR Sodium (136-145) mmol/L Potassium (3.5-5.1) mmol/L Chloride (98-107) mmol/L Carbon Dioxide (21.0-32.0) mmol/L BUN (7.0-18.0) mg/dL Creatinine (0.6-1.0) mg/dL Est Cr Clr Drug Dosing mL/min Estimated GFR (MDRD) ml/min Glucose (74-106) mg/dL POC Glucose (60-110) mg/dL Hemoglobin A1c 6.5 H (4.5-6.2) % Calcium (8.5-10.1) mg/dL Total Bilirubin (0.2-1.0) mg/dL AST (15-37) IU/L ALT (14-63) IU/L Alkaline Phosphatase (46-116) U/L Troponin I (0.000-0.056) ng/mL Total Protein (6.4-8.2) g/dL Albumin (3.4-5.0) g/dL Globulin (2.6-4.0) g/dL Albumin/Globulin Ratio (0.9-1.6) Triglycerides (0-200) mg/dL Cholesterol (50-200) mg/dL LDL Cholesterol, Calc (60-180) mg/dL VLDL Cholesterol (5-55) mg/dL HDL Cholesterol (40-60) mg/dL Cholesterol/HDL Ratio (3.3-6.0) Lipase 444 H (73-393) U/L TSH 3rd Generation 1.49 (0.36-3.74) uIU/mL 07/30/19 07/30/19 07/31/19 Range/Units 16:24 18:07 00:13 WBC (4.0-11.0) K/uL RBC (4.30-5.90) M/uL Hgb (12.0-16.0) g/dL Hct (36.0-46.0) % MCV (80.0-98.0) fL MCH (27.0-32.0) pg MCHC (31.0-37.0) g/dL RDW Std Deviation (28.0-62.0) fl RDW Coeff of Remy (11.0-15.0) % Plt Count (150-400) K/uL MPV (7.40-12.00) fL Neut % (Auto) (48.0-80.0) % Lymph % (Auto) (16.0-40.0) % [place] % (Auto) (0.0-15.0) % Eos % (Auto) (0.0-7.0) % Baso % (Auto) (0.0-1.5) % Neut # (Auto) (1.4-5.7) K/uL Lymph # (Auto) (0.6-2.4) K/uL [place] # (Auto) (0.0-0.8) K/uL Eos # (Auto) (0.0-0.7) K/uL Baso # (Auto) (0.0-0.1) K/uL Add Manual Diff Neutrophils % (Manual) (48.0-80.0) % Lymphocytes % (Manual) (16.0-40.0) % Monocytes % (Manual) (0.0-15.0) % Eosinophils % (Manual) (0.0-7.0) % Nucleated RBC % /100WBC Absolute Seg Neuts (1.4-5.7) Lymphocytes # (Manual) (0.6-2.4) Monocytes # (Manual) (0.0-0.8) Eosinophils # (Manual) (0.0-0.7) Nucleated RBCs # K/uL INR Sodium (136-145) mmol/L Potassium (3.5-5.1) mmol/L Chloride (98-107) mmol/L Carbon Dioxide (21.0-32.0) mmol/L BUN (7.0-18.0) mg/dL Creatinine (0.6-1.0) mg/dL Est Cr Clr Drug Dosing mL/min Estimated GFR (MDRD) ml/min Glucose (74-106) mg/dL POC Glucose 105 (60-110) mg/dL Hemoglobin A1c (4.5-6.2) % Calcium (8.5-10.1) mg/dL Total Bilirubin (0.2-1.0) mg/dL AST (15-37) IU/L ALT (14-63) IU/L Alkaline Phosphatase (46-116) U/L Troponin I < 0.050 < 0.050 (0.000-0.056) ng/mL Total Protein (6.4-8.2) g/dL Albumin (3.4-5.0) g/dL Globulin (2.6-4.0) g/dL Albumin/Globulin Ratio (0.9-1.6) Triglycerides (0-200) mg/dL Cholesterol (50-200) mg/dL LDL Cholesterol, Calc (60-180) mg/dL VLDL Cholesterol (5-55) mg/dL HDL Cholesterol (40-60) mg/dL Cholesterol/HDL Ratio (3.3-6.0) Lipase (73-393) U/L TSH 3rd Generation (0.36-3.74) uIU/mL 07/31/19 07/31/19 07/31/19 Range/Units 05:08 05:08 07:30 WBC 4.87 (4.0-11.0) K/uL RBC 4.37 (4.30-5.90) M/uL Hgb 12.2 (12.0-16.0) g/dL Hct 37.0 (36.0-46.0) % MCV 84.7 (80.0-98.0) fL MCH 27.9 (27.0-32.0) pg MCHC 33.0 (31.0-37.0) g/dL RDW Std Deviation 47.7 (28.0-62.0) fl RDW Coeff of Remy 15 (11.0-15.0) % Plt Count 381 (150-400) K/uL MPV 10.20 (7.40-12.00) fL Neut % (Auto) (48.0-80.0) % Lymph % (Auto) (16.0-40.0) % [place] % (Auto) (0.0-15.0) % Eos % (Auto) (0.0-7.0) % Baso % (Auto) (0.0-1.5) % Neut # (Auto) (1.4-5.7) K/uL Lymph # (Auto) (0.6-2.4) K/uL [place] # (Auto) (0.0-0.8) K/uL Eos # (Auto) (0.0-0.7) K/uL Baso # (Auto) (0.0-0.1) K/uL Add Manual Diff YES Neutrophils % (Manual) 26 L (48.0-80.0) % Lymphocytes % (Manual) 60 H (16.0-40.0) % Monocytes % (Manual) 13 (0.0-15.0) % Eosinophils % (Manual) 1 (0.0-7.0) % Nucleated RBC % 0.0 /100WBC Absolute Seg Neuts 1.3 L (1.4-5.7) Lymphocytes # (Manual) 2.9 H (0.6-2.4) Monocytes # (Manual) 0.6 (0.0-0.8) Eosinophils # (Manual) 0.0 (0.0-0.7) Nucleated RBCs # 0 K/uL INR Sodium 142 (136-145) mmol/L Potassium 3.9 (3.5-5.1) mmol/L Chloride 107 (98-107) mmol/L Carbon Dioxide 26.9 (21.0-32.0) mmol/L BUN 13 (7.0-18.0) mg/dL Creatinine 0.8 (0.6-1.0) mg/dL Est Cr Clr Drug Dosing 58.77 mL/min Estimated GFR (MDRD) > 60.0 ml/min Glucose 127 H (74-106) mg/dL POC Glucose 121 H (60-110) mg/dL Hemoglobin A1c (4.5-6.2) % Calcium 9.1 (8.5-10.1) mg/dL Total Bilirubin (0.2-1.0) mg/dL AST (15-37) IU/L ALT (14-63) IU/L Alkaline Phosphatase (46-116) U/L Troponin I (0.000-0.056) ng/mL Total Protein (6.4-8.2) g/dL Albumin (3.4-5.0) g/dL Globulin (2.6-4.0) g/dL Albumin/Globulin Ratio (0.9-1.6) Triglycerides 81 (0-200) mg/dL Cholesterol 128 (50-200) mg/dL LDL Cholesterol, Calc 75 (60-180) mg/dL VLDL Cholesterol 16 (5-55) mg/dL HDL Cholesterol 37 L (40-60) mg/dL Cholesterol/HDL Ratio 3.5 (3.3-6.0) Lipase (73-393) U/L TSH 3rd Generation (0.36-3.74) uIU/mL Med Orders - Current: Current Medications Acetaminophen (Tylenol) 650 mg PO Q4H PRN PRN Reason: Pain (Mild 1-3)/fever Aspirin (Aspirin) 81 mg PO DAILY [facility] Atorvastatin Calcium (Lipitor) 40 mg PO BEDTIME [facility] Last Admin: 07/30/19 20:42 Dose: 40 mg Docusate Sodium (Colace) 100 mg PO BID PRN PRN Reason: Constipation Last Admin: 07/30/19 18:35 Dose: 100 mg Enoxaparin Sodium (Lovenox) 40 mg SUBCUT Q24H [facility] Last Admin: 07/30/19 14:50 Dose: 40 mg Hydrochlorothiazide (Hydrochlorothiazide) 25 mg PO QAM [facility] Pantoprazole Sodium 40 mg/ (Sodium Chloride) 10 mls @ 300 mls/hr IV DAILY [facility] Last Admin: 07/30/19 14:50 Dose: 300 mls/hr Ibuprofen (Motrin) 800 mg PO Q6H PRN PRN Reason: Pain (mild 1-3) Last Admin: 07/30/19 16:57 Dose: 800 mg Insulin Aspart (Novolog) 0 unit SUBCUT TIDAC [facility]; Protocol Last Admin: 07/31/19 07:32 Dose: Not Given Losartan Potassium (Cozaar) 100 mg PO QAM [facility] Morphine Sulfate (Morphine) 2 mg IVPUSH Q2H PRN PRN Reason: Pain (severe 7-10) Stop: 07/31/19 13:43 Nitroglycerin (Nitrostat) 0.4 mg SL Q5M PRN PRN Reason: Chest Pain Ondansetron HCl (Zofran Odt) 4 mg PO Q4H PRN PRN Reason: nausea, able to take PO Ondansetron HCl (Zofran) 4 mg IVPUSH Q4H PRN PRN Reason: Nausea Polyethylene Glycol (Miralax) 17 gm PO DAILY PRN PRN Reason: Constipation Last Admin: 07/30/19 18:35 Dose: 17 gm Sodium Chloride (Saline Flush) 10 ml FLUSH ASDIRECTED PRN PRN Reason: Keep Vein Open Sodium Chloride (Saline Flush) 2.5 ml FLUSH ASDIRECTED PRN PRN Reason: Keep Vein Open Sucralfate (Carafate) 1 gm PO TIDAC [facility] Last Admin: 07/31/19 07:34 Dose: 1 gm Discontinued Medications Aspirin (Aspirin) 324 mg PO ONETIME ONE Stop: 07/30/19 11:39 Last Admin: 07/30/19 11:55 Dose: 324 mg Morphine Sulfate (Morphine) 2 mg IVPUSH Q2H PRN PRN Reason: Pain (severe 7-10) Stop: 07/31/19 13:43 <Layton Clement - Last Filed: 08/02/19 10:19> Discharge Summary - Referral to [facility] Primary Care Physician: Hugh Pacheco MD - Patient Data Vitals - Most Recent: Last Vital Signs Temp 35.9 C L 07/31/19 07:49 Pulse 60 07/31/19 07:49 Resp 14 07/31/19 07:49 BP 124/74 07/31/19 09:15 Pulse Ox 98 07/31/19 07:49 Med Orders - Current: Current Medications Discontinued Medications Acetaminophen (Tylenol) 650 mg PO Q4H PRN PRN Reason: Pain (Mild 1-3)/fever Aspirin (Aspirin) 324 mg PO ONETIME ONE Stop: 07/30/19 11:39 Last Admin: 07/30/19 11:55 Dose: 324 mg Aspirin (Aspirin) 81 mg PO DAILY [facility] Last Admin: 07/31/19 08:32 Dose: 81 mg Atorvastatin Calcium (Lipitor) 40 mg PO BEDTIME [facility] Last Admin: 07/30/19 20:42 Dose: 40 mg Docusate Sodium (Colace) 100 mg PO BID PRN PRN Reason: Constipation Last Admin: 07/31/19 08:31 Dose: 100 mg Enoxaparin Sodium (Lovenox) 40 mg SUBCUT Q24H [facility] Last Admin: 07/30/19 14:50 Dose: 40 mg Hydrochlorothiazide (Hydrochlorothiazide) 25 mg PO QAM [facility] Last Admin: 07/31/19 08:31 Dose: 25 mg Pantoprazole Sodium 40 mg/ (Sodium Chloride) 10 mls @ 300 mls/hr IV DAILY [facility] Last Admin: 07/31/19 08:31 Dose: 300 mls/hr Ibuprofen (Motrin) 800 mg PO Q6H PRN PRN Reason: Pain (mild 1-3) Last Admin: 07/30/19 16:57 Dose: 800 mg Insulin Aspart (Novolog) 0 unit SUBCUT [facility]; Protocol Last Admin: 07/31/19 07:32 Dose: Not Given [facility] [place] Last Admin: 07/31/19 08:31 Dose: 100 mg Morphine Sulfate (Morphine) 2 mg IVPUSH Q2H PRN PRN Reason: Pain (severe 7-10) Stop: 07/31/19 13:43 Morphine Sulfate (Morphine) 2 mg IVPUSH Q2H PRN PRN Reason: Pain (severe 7-10) Stop: 07/31/19 13:43 Nitroglycerin (Nitrostat) 0.4 mg SL Q5M PRN PRN Reason: Chest Pain Ondansetron HCl (Zofran Odt) 4 mg PO Q4H PRN PRN Reason: nausea, able to take PO Ondansetron HCl (Zofran) 4 mg IVPUSH Q4H PRN PRN Reason: Nausea Polyethylene Glycol (Miralax) 17 gm PO DAILY PRN PRN Reason: Constipation Last Admin: 07/30/19 18:35 Dose: 17 gm Sodium Chloride (Saline Flush) 10 ml FLUSH ASDIRECTED PRN PRN Reason: Keep Vein Open Sodium Chloride (Saline Flush) 2.5 ml FLUSH ASDIRECTED PRN PRN Reason: Keep Vein Open Sucralfate (Carafate) 1 [facility]m [facility] Last Admin: 07/31/19 07:34 Dose: 1 gm - Free Text/Narrative Note: I have seen and evaluated the patient with the resident. I have discussed the findings and treatment plan with the resident. I agree with the assessment and plan as outlined in the following note.
[2019-07-31] MEDS: Docusate Sodium 100 MG Cap PO PRN (08:31)
[2019-07-31] MEDS: Pantoprazole 40 MG in Sodium Chloride 0.9% 10 ML IV SCH (08:31)
[2019-07-31] MEDS ORDERED: Hydrochlorothiazide 25 MG Tab PO SCH (09:00)
[2019-07-31] MEDS ORDERED: Losartan 50 MG Tab PO SCH (09:00)
[2019-07-31] MEDS ORDERED: Aspirin 81 MG Tab.Chew PO SCH (09:00)
--- NOTE | 2019-08-01 17:10 | ECHO ---
EXAM DATE: 07/30/19 PATIENT'S AGE: 63 The echocardiogram report can be seen in this patient's EMR (Electronic Medical Record) in the REPORTS section. The report has also been scanned into PACs. ARGENIS
== END 2019-07-31 13:00 | disposition home or self-care (01) ==
LOC: MW.ED 11:10 → MW.MS 13:32
PROVIDERS: ADMIT Internal Medicine; ATTEND Internal Medicine
DX: R07.89 Other chest pain (principal); K85.90 Acute pancreatitis without necrosis or infection, unspecified; I10 Essential (primary) hypertension; E11.9 Type 2 diabetes mellitus without complications; E66.9 Obesity, unspecified; M19.90 Unspecified osteoarthritis, unspecified site; Z79.899 Other long term (current) drug therapy; Z79.84 Long term (current) use of oral hypoglycemic drugs; Z68.36 Body mass index [BMI] 36.0-36.9, adult
CPT/HCPCS: 36415; 71046; 76705; 80048; 80053; 80061; 82962; 83036; 83690; 84443; 84484; 85025; 85610; 93005; 93306; 96372; 96374; 96376; 99285; A9270; C9113; G0378; J1650; J7050